=== PATIENT | female | born 1990 | race Two or more races ===

== ENCOUNTER 2017-11-12 08:38 | Outpatient (CLI) | payer OTHER ==
[~2017-11-12] VITALS: Ht 165.1 cm; Wt 81.6 kg
[2017-11-12] MEDS ORDERED: ZANTAC300 MG PO (09:42)
[2017-11-12] MEDS ORDERED: OMEPRAZOLE40 MG PO (09:42)
== END 2017-11-12 09:00 | disposition home or self-care (01) ==
LOC: OFIC 805 08:38
DX: R13.19 Other dysphagia (principal); K21.9 Gastro-esophageal reflux disease without esophagitis; J37.0 Chronic laryngitis; E04.1 Nontoxic single thyroid nodule; R22.1 Localized swelling, mass and lump, neck; J35.1 Hypertrophy of tonsils

== ENCOUNTER 2018-09-29 09:59 | Outpatient (CLI) | payer OTHER ==
[~2018-09-29 09:59] MED LIST: OMEPRAZOLE40 MG PO; ZANTAC300 MG PO
== END 2018-09-29 12:12 | disposition home or self-care (01) ==
LOC: NST 09:59
DX: Z34.82 Encounter for supervision of other normal pregnancy, second trimester (principal)

== ENCOUNTER 2018-12-15 06:24 | Outpatient (CLI) | payer OTHER | END 2018-12-15 11:20 | disposition home or self-care (01) | LOC: NST 06:24 | DX: Z34.83 Encounter for supervision of other normal pregnancy, third trimester (principal) ==

== ENCOUNTER 2018-12-18 07:54 | Inpatient (IN) | payer OTHER ==
[~2018-12-18] VITALS: Ht 165.1 cm; Wt 97.5 kg
[2019-01-12] MEDS ORDERED: LEVOTHYROXINE25 MCG PO (15:55)
[2019-01-12] MEDS ORDERED: PRENATAL 19 TA1 EAC1 PO (15:55)
[2019-01-12] MEDS ORDERED: ZANTAC 7575 MG PO (15:56)
== END 2019-01-16 13:59 | disposition home or self-care (01) | DRG 788 ==
LOC: OB/GYN 12-31 18:25 → SURG-SUITE 01-12 13:31 → LDR 01-12 13:31 → O/R 01-13 17:26 → SURG-SUITE 01-13 17:56
PROVIDERS: ADMIT Obstetrics & Gynecology
PROC: 10D00Z1 Extraction of Products of Conception, Low, Open Approach (ICD-10-PCS; principal; 2019-01-12)
PROC: 3E0P7VZ Introduction of Hormone into Female Reproductive, Via Natural or Artificial Opening (ICD-10-PCS; 2019-01-12)
PROC: 3E033VJ Introduction of Other Hormone into Peripheral Vein, Percutaneous Approach (ICD-10-PCS; 2019-01-12)
PROC: 4A1HXCZ Monitoring of Products of Conception, Cardiac Rate, External Approach (ICD-10-PCS; 2019-01-12)
DX: O82 Encounter for cesarean delivery without indication (principal); O76 Abnormality in fetal heart rate and rhythm complicating labor and delivery; O61.0 Failed medical induction of labor; Z3A.40 40 weeks gestation of pregnancy; Z37.0 Single live birth

== ENCOUNTER 2019-01-01 16:24 | Outpatient (CLI) | payer OTHER | END 2019-01-01 17:41 | disposition home or self-care (01) | LOC: NST 16:24 | DX: Z34.83 Encounter for supervision of other normal pregnancy, third trimester (principal) ==

== ENCOUNTER 2019-01-08 07:04 | Outpatient (CLI) | payer OTHER | END 2019-01-08 08:06 | disposition home or self-care (01) | LOC: NST 07:04 | DX: Z34.83 Encounter for supervision of other normal pregnancy, third trimester (principal) ==

== ENCOUNTER 2019-01-11 09:06 | Outpatient (CLI) | payer OTHER ==
[2019-01-12] MEDS ORDERED: PRENATAL 19 TA1 EAC1 PO (15:55)
[2019-01-12] MEDS ORDERED: LEVOTHYROXINE25 MCG PO (15:55)
[2019-01-12] MEDS ORDERED: ZANTAC 7575 MG PO (15:56)
== END 2019-01-11 10:03 | disposition home or self-care (01) ==
LOC: NST 09:06
DX: Z34.83 Encounter for supervision of other normal pregnancy, third trimester (principal)

== ENCOUNTER 2023-12-27 21:30 | Emergency (ER) | payer OTHER ==
[~2023-12-27] VITALS: Ht 165.1 cm; Wt 78.0 kg
[~2023-12-27 21:30] MED LIST changes: +LEVOTHYROXINE25 MCG PO; +PRENATAL 19 TA1 EAC1 PO; +ZANTAC 7575 MG PO
[2023-12-27] MEDS ORDERED: PRENATABS RX T1 EACH (21:37)
[2023-12-27 22:27] LABS: HEMATOCRIT 33.3 % (36.0-45.00); HEMOGLOBIN 11.5 g/dL (12.0-15.00); MEAN CORPUSCULAR HEMOGLOBIN 31.8 pg (27.00-32.0); MEAN CORPUSCULAR HGB CONC 34.6 g/dl (32.0-36.0); PLATELET COUNT 236 K/uL (150-450); RED BLOOD COUNT 3.62 M/uL (4.00-6.00); RED CELL DISTRIBUTION WIDTH 12.6 % (11.5-14.5)
[2023-12-27 22:45] LABS: INR 0.96; PARTIAL THROMBOPLASTIN TIME 29.3 SECONDS (22.0-34.0); PROTHROMBIN TIME 10.1 SECONDS (9.0-11.5)
[2023-12-27 22:49] LABS: CALCIUM 9.5 mg/dL (8.5-10.1); CREATININE SERUM 0.43 mg/dL (0.55-1.02); GFR 167.1; POTASSIUM 3.98 mEq/L (3.5-5.1)
[2023-12-27] MEDS ORDERED: RINGERS SOLUTION,LACTATED 1,000 ML IV ONE (23:30)
[2023-12-28 08:23] LABS: HEMATOCRIT 32.9 % (36.0-45.00); HEMOGLOBIN 11.5 g/dL (12.0-15.00); MEAN CELL VOLUME 92.5 fL (80.00-100.00); MEAN CORPUSCULAR HEMOGLOBIN 32.5 pg (27.00-32.0); MEAN CORPUSCULAR HGB CONC 35.1 g/dl (32.0-36.0); PLATELET COUNT 210 K/uL (150-450); RED BLOOD COUNT 3.55 M/uL (4.00-6.00); RED CELL DISTRIBUTION WIDTH 12.5 % (11.5-14.5)
[2023-12-28 14:46] LABS: URINE APPEARANCE Clear; URINE BILIRRUBIN Negative (NEGATIVE); URINE BLOOD Large; URINE COLOR Yellow; URINE GLUCOSE Negative (NEGATIVE); URINE KETONE Negative (NEGATIVE); URINE LEUKOCYTE Negative; URINE NITRATE Negative; URINE PROTEIN Negative (NEGATIVE); URINE UROBILINOGEN 0.2 E.U./dl
[2023-12-28 14:51] LABS: URINE EPITHELIAL CELLS 23.9 uL (0.0-38.8); URINE WBC 23.7 uL (0.0-23.2)
[2023-12-28 14:54] LABS: URINE RBC 1.5 uL (0.0-20.8)
== END 2023-12-28 14:26 | disposition home or self-care (01) ==
LOC: ER 21:31
PROVIDERS: General Practice
DX: O20.9 Hemorrhage in early pregnancy, unspecified (principal); Z3A.13 13 weeks gestation of pregnancy; Z20.822 Contact with and (suspected) exposure to COVID-19

== ENCOUNTER 2024-04-01 16:49 | Outpatient (CLI) | payer OTHER ==
[2024-04-01 14:55] VITALS: BP 102/65
[~2024-04-01 16:49] MED LIST changes: +PRENATABS RX T1 EACH
[2024-04-01 21:00] VITALS: BP 124/65
== END 2024-04-01 17:24 | disposition home or self-care (01) ==
LOC: OBS/DEL 16:49
PROVIDERS: ATTEND Obstetrics & Gynecology Maternal & Fetal Medicine
DX: O36.8120 Decreased fetal movements, second trimester, not applicable or unspecified (principal); O47.02 False labor before 37 completed weeks of gestation, second trimester; Z3A.26 26 weeks gestation of pregnancy

== ENCOUNTER 2024-06-04 15:07 | Inpatient (IN) | payer OTHER ==
[~2024-06-04] VITALS: Ht 152.4 cm; Wt 2.7 kg
[2024-06-04 15:27] VITALS: BP 111/69
[2024-06-04] MEDS ORDERED: CYCLOBENZAPRINE HCL 5 MG TABLET PO PRN (16:45)
[2024-06-04] MEDS ORDERED: MORPHINE SULFATE 4 MG/ML CARTRIDGE IV PRN (17:00)
[2024-06-04] MEDS ORDERED: RINGERS SOLUTION,LACTATED 1,000 ML IV SCH (17:00)
[2024-06-04 18:16] LABS: HEMATOCRIT 32.5 % (36.0-45.00); HEMOGLOBIN 11.2 g/dL (12.0-15.00); MEAN CELL VOLUME 86.9 fL (80.00-100.00); MEAN CORPUSCULAR HEMOGLOBIN 29.9 pg (27.00-32.0); MEAN CORPUSCULAR HGB CONC 34.4 g/dl (32.0-36.0); PLATELET COUNT 218 K/uL (150-450); RED BLOOD COUNT 3.74 M/uL (4.00-6.00); RED CELL DISTRIBUTION WIDTH 12.8 % (11.5-14.5)
[2024-06-04 18:34] LABS: INR 0.95; PARTIAL THROMBOPLASTIN TIME 28.1 SECONDS (22.0-34.0); PROTHROMBIN TIME 10.4 SECONDS (9.0-11.5)
[2024-06-04 19:33] VITALS: BP 98/61
[2024-06-04 23:18] VITALS: BP 111/67
[2024-06-05] VITALS (7 sets, daily range): BP systolic 99–117; BP diastolic 56–71
[2024-06-05] MEDS ORDERED: BETAMETHASONE ACETATE,SOD PHOS 30 MG/5 ML ML ONE (12:11)
[2024-06-05] MEDS ORDERED: BETAMETHASONE ACETATE,SOD PHOS 30 MG/5 ML ML IM SCH (12:30)
[2024-06-05] MEDS ORDERED: BETAMETHASONE ACETATE,SOD PHOS 30 MG/5 ML ML IM ONE (12:30)
[2024-06-06 04:00] VITALS: BP 99/60
[2024-06-06] MEDS ORDERED: TERBUTALINE SULFATE 1 MG/ML AMPUL SUBCUTANEO ONE (05:15)
[2024-06-06 07:10] VITALS: BP 101/61
[2024-06-06] MEDS ORDERED: ERYTHROMYCIN BASE OPHT 1GM EACH TUBE OP ONE (09:19)
[2024-06-06] MEDS ORDERED: OXYTOCIN 10 UNITS/ML VIAL ONE (09:19)
[2024-06-06 10:36] VITALS: BP 118/78
[2024-06-06] MEDS ORDERED: CEFAZOLIN SODIUM 1,000 MG VIAL IV SCH (10:45)
[2024-06-06] MEDS ORDERED: MORPHINE SULFATE 4 MG/ML CARTRIDGE IV SCH (10:53)
[2024-06-06] MEDS ORDERED: OXYTOCIN 1,000 ML IV ONE (11:00)
[2024-06-06] MEDS ORDERED: IBUprofen 600 MG TABLET PO SCH (12:00)
[2024-06-06] MEDS ORDERED: KETOROLAC TROMETHAMINE 30 MG VIAL IV SCH (12:00)
[2024-06-06] MEDS ORDERED: BETAMETHASONE ACETATE,SOD PHOS 30 MG/5 ML ML IM ONE (12:20)
[2024-06-06] MEDS ORDERED: MORPHINE SULFATE 4 MG/ML VIAL IV ONE (13:20)
[2024-06-06] MEDS ORDERED: KETOROLAC TROMETHAMINE 30 MG VIAL ONE (13:47)
[2024-06-06 14:05] VITALS: BP 96/54
[2024-06-07] VITALS: BP 90/51
[2024-06-07 05:23] VITALS: BP 90/60
[2024-06-07] MEDS ORDERED: ACETAMINOPHEN 500 MG GEL..CAP PO SCH (06:00)
[2024-06-07 07:03] LABS: HEMATOCRIT 33.3 % (36.0-45.00); HEMOGLOBIN 11.3 g/dL (12.0-15.00); MEAN CELL VOLUME 88.8 fL (80.00-100.00); MEAN CORPUSCULAR HGB CONC 33.8 g/dl (32.0-36.0); PLATELET COUNT 247 K/uL (150-450); RED BLOOD COUNT 3.75 M/uL (4.00-6.00)
[2024-06-07 08:00] VITALS: BP 105/67
[2024-06-07] MEDS ORDERED: SIMETHICONE 125 MG CAPSULE PO SCH (09:00)
[2024-06-07] MEDS ORDERED: GABAPENTIN 300 MG CAPSULE PO SCH (09:00)
[2024-06-07] MEDS ORDERED: DOCUSATE SODIUM 100MG CAP PO SCH (09:00)
[2024-06-07] MEDS ORDERED: PNV,CALCIUM 72/IRON/FOLIC ACID 1 TAB TABLET PO SCH (09:00)
[2024-06-07] MEDS ORDERED: KETOROLAC TROMETHAMINE 10 MG TABLET PO SCH (12:00)
[2024-06-07] MEDS ORDERED: OxyCODONE HCL/APAP UD (PERCOCET) PO SCH (13:00)
[2024-06-07 17:00] VITALS: BP 110/75
[2024-06-07 23:48] VITALS: BP 100/64
[2024-06-08 08:03] VITALS: BP 100/63
== END 2024-06-08 13:16 | disposition home or self-care (01) | DRG 786 ==
LOC: NST 15:07 → OBS/DEL 15:07 → LDR 06-05 11:49 → OB/GYN 06-05 11:49
PROVIDERS: ADMIT Obstetrics & Gynecology Gynecology; ATTEND Obstetrics & Gynecology Gynecology
PROC: 4A1HXCZ Monitoring of Products of Conception, Cardiac Rate, External Approach (ICD-10-PCS; 2024-06-05)
PROC: 10D00Z1 Extraction of Products of Conception, Low, Open Approach (ICD-10-PCS; principal; 2024-06-06 09:00)
DX: O32.1XX0 Maternal care for breech presentation, not applicable or unspecified (principal); O60.14X0 Preterm labor third trimester with preterm delivery third trimester, not applicable or unspecified; O34.211 Maternal care for low transverse scar from previous cesarean delivery; Z3A.36 36 weeks gestation of pregnancy; Z37.0 Single live birth